=== PATIENT | male | born 1965 | race Caucasian/White ===

== ENCOUNTER → 2023-12-12 09:09 | Outpatient (REF) | payer BC, SELFPAY | LOC: DHSLP 09:09 | PROVIDERS: ATTENDING PHYSICIAN Internal Medicine Critical Care Medicine; FAMILY PHYSICIAN Family Medicine | DX: G47.33 Obstructive sleep apnea (adult) (pediatric) (principal) | CPT/HCPCS: 95800 ==

== ENCOUNTER → 2024-10-22 07:28 | Outpatient (REF) | payer BC, SELFPAY | LOC: HWRAD 07:28 | PROVIDERS: ATTENDING PHYSICIAN Family Medicine | DX: R74.8 Abnormal levels of other serum enzymes (principal) | CPT/HCPCS: 76700 ==